=== PATIENT | male | born 1975 | race Hispanic/Latino ===

== ENCOUNTER 2022-02-12 11:26 | Emergency (ER) | payer BC ==
[~2022-02-12] VITALS: Ht 167.6 cm; Wt 82.0 kg
[~2022-02-12 11:26] MED LIST: NO HOME MEDS; PRILOSEC OTC20 MG OR; ULTRAM50 MG OR
[2022-02-12 12:37] VITALS: BP 136/78
[2022-02-12 13:02] VITALS: BP 150/99
[2022-02-12 14:01] VITALS: BP 118/77
[2022-02-12 14:30] VITALS: BP 128/72
[2022-02-12] MEDS ORDERED: NAPROXEN500 MG PO (14:48)
[2022-02-12] MEDS ORDERED: METHOCARBAMOL500 MG PO (14:48)
[2022-02-12 15:00] VITALS: BP 125/72
== END 2022-02-12 15:05 | disposition home or self-care (01) | DRG 563 ==
LOC: ED 11:26
DX: S39.012A Strain of muscle, fascia and tendon of lower back, initial encounter (principal); X50.0XXA Overexertion from strenuous movement or load, initial encounter; Y93.89 Activity, other specified